=== PATIENT | male | born 1975 | race Caucasian/White ===

== ENCOUNTER 2024-08-12 07:39 | Inpatient (IN) | payer BC ==
[~2024-08-12] VITALS: Ht 182.9 cm; Wt 97.7 kg
[2024-08-12] VITALS (16 sets, daily range): BP systolic 118–146; BP diastolic 67–99; PULSE 60–88; RESP 11–19; TEMP 97.3–98; O2SAT 93–97
--- NOTE | 2024-08-12 08:03 | Physician Documentation ---
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 He woke around 4:30 a.m. with midsternal chest discomfort and chest tightness. Positive dys pnea. He then had radiation of his pain to his neck and down his left arm. He rates his symptoms as mild in severity but has never had these symptoms before. Medication Reconciliation Allergies: Coded Allergies: No Known Allergies (Unverified , 08/12/24) Scheduled Rosuvastatin Calcium (Rosuvastatin Calcium), 1 TAB PO DAILY, (Reported) Miscellaneous Medications Home Med List (No Home Medications), (Reported) Review of Systems All Other Systems at this time: Reviewed and Negative Constitutional: Denies: fever Physical Exam Vital Signs: Temperature: 97.9, Source: Oral, Heart Rate: 74, Respiratory Rate: 18, BP: 151/102, Pulse Oximetry: 98, Weight: 102.580 Oxygen Flow Rate: 0 Physical Exam Well-appearing no distress sitting comfortably in bed no diaphoresis skin pink warm dry No JVD Cardiac no murmur Pulmonary clear to auscultation bilaterally Abdomen is soft nontender no mass or pulsation Lower extremity no edema Progress Progress Note Reassess patient at 8:49 a.m. he still looks well-appearing and his initial troponin returned within normal limits EKG but EKG now with ST elevation 9:00 a.m. discussed with Cardiology he will evaluate the patient 9:20 a.m. discussed again with Cardiology he plans for cardiac catheterization we will be in very soon either to see the patient in the ED or in the cathodic protection technician 9: 25 a.m. 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 [place] hospitalist who accepts for admission. Results/Orders Reviewed/noted all lab results: Yes Results/Orders Orders - SHERRI PLEITEZ MD Chest,Single View (08/12/24 07:50) Nitroglycerin Sublingual Tab (Nitrostat (08/12/24 07:50) Monitor (08/12/24 07:50) Saline Lock (5/18/25 07:50) Oxygen (08/12/24 07:50) Electrocardiogram (08/13/24 07:50) Electrocardiogram (08/14/24 07:50) Electrocardiogram (08/15/24 07:50) Electrocardiogram (08/12/24 08:37) Electrocardiogram (08/13/24 08:37) Electrocardiogram (08/14/24 08:37) Electrocardiogram (08/15/24 08:37) Heparin 1,000unit/Ml 10ml Vial (Heparin (08/12/24 09:22) Page Hospitalist (08/12/24 09:34) Fill Out Med Reconciliation (08/12/24 09:34) Completed Orders - SHERRI PLEITEZ MD Chest,Single View (08/12/24 07:50) Aspirin 81mg Chew Tablet (Aspirin 81mg C (08/12/24 07:50) Cbc/Diff (08/12/24 07:50) Electrocardiogram (08/12/24 07:50) PBNP (08/12/24 07:50) CMP (08/12/24 07:50) Hs Troponin I W Calculations (08/12/24 07:50) Hs Troponin I W Calculations (08/12/24 09:50) Hs Troponin I W Calculations (08/12/24 10:50) Verapamil Inj (Verapamil Inj) (08/12/24 09:22) Lidocaine 1% 30ml Vial (Xylocaine 1% Via (08/12/24 09:22) Iohexol 350mg/Ml 50ml Inj (Omnipaque 350 (08/12/24 09:22) Iohexol 350mg/Ml 100ml (Omnipaque 350mg/ (08/12/24 09:22) Heparin 1,000 Units/Ns 500ml (Heparin 1, (08/12/24 09:23) Nitroglycerin 500mcg/5ml D5w (Nitroglyce (08/12/24 09:23) Midazolam 1 Mg/Ml 2ml Inj. (Versed 1 Mg/ (08/12/24 09:43) Fentanyl/Pf (Fentanyl 0.05 Mg/Ml Syringe (08/12/24 09:43) Heparin 25,000 Unit/250ml Bag (Heparin 2 (08/12/24 09:44) Iohexol 350mg/Ml 100ml (Omnipaque 350mg/ (08/12/24 09:59) Iohexol 350mg/Ml 50ml Inj (Omnipaque 350 (08/12/24 10:07) Vital Signs 08/12/24 08/12/24 08/12/24 07:51 08:49 09:08 Temp 97.9 97.9 Pulse 74 88 Resp 18 16 16 B/P (MAP) 151/102 131/92 (105) Pulse Ox 98 95 O2 Flow Rate 0 0 Laboratory Tests Test 08/12/24 08:02 08/12/24 09:04 White Blood Count 8.2 Red Blood Count 5.39 Hemoglobin 16.8 Hematocrit 47.9 Mean Corpuscular Volume 88.9 Mean Corpuscular Hemoglobin 31.1 H Mean Corpuscular Hemoglobin Concent 35.0 Red Cell Distribution Width 13.8 Platelet Count 187 Mean Platelet Volume 8.6 Neutrophils (%) (Auto) 64.8 Lymphocytes (%) (Auto) 21.7 Monocytes (%) (Auto) 10.8 Eosinophils (%) (Auto) 2.2 Basophils (%) (Auto) 0.5 Neutrophils # (Auto) 5.3 Lymphocytes # (Auto) 1.8 Monocytes # (Auto) 0.9 Eosinophils # (Auto) 0.2 Basophils # (Auto) 0.0 CBC Comment Sodium Level 139 Potassium Level 4.4 Chloride Level 104 Carbon Dioxide Level 29.8 Anion Gap 5 L Blood Urea Nitrogen 20 H Creatinine 1.12 H Estimated GFR/1.73 m2 70 BUN/Creatinine Ratio 17.9 Glucose Level 112 H Calcium Level 8.6 Total Bilirubin 0.8 Aspartate Amino Transf (AST/SGOT) 25 Alanine Aminotransferase (ALT/SGPT) 36 Alkaline Phosphatase 47 Troponin I High Sensitivity 13 Pro-B-Type Natriuretic Peptide 63 Total Protein 7.0 Albumin 4.0 Globulin 3.0 Albumin/Globulin Ratio 1.3 Chemistry Comments Erythrocyte Sedimentation Rate 1 EKG/XRAY/CT/US/VASC/MRI EKG : Additional Comment EKG independently interpreted by myself time 7:45 a.m. indication chest pain normal sinus rhythm rate 76 left axis deviation, LVH, poor R-wave progression submillimeter elevation lead 1 2 aVL and V6. No prior for comparison Repeat EKG time 844 indication chest pain increased elevation in I II aVL V5 V6 STEMI Heart Score: Heart Score Response (Comments) Value History Highly Suspicious [address]-Deviation 2 Age 45-64 1 Risk Factors 1 or 2 risk factors 1 Total 6 Medical Decision Making Additional info obtained from: family Findings 0820 Initial EKG concerning with sub mm ST-elevation in multiple leads. We will plan for repeat EKG and very close evaluation to evaluate for progression to STEMI criteria Additional Information Acute coronary syndrome, Departure Disposition: ADMITTED INPATIENT Impression: Primary Impression: STEMI (ST elevation myocardial infarction) Qualified Codes: I21.3 - ST elevation (STEMI) myocardial infarction of unspecified site Referrals: NO PRIMARY CARE PROVIDER (PCP) Critical Care Note Total Time (mins): 30 Critical Care Note The very real possibility of a deterioration of this patient's condition required the highest level of my preparedness for sudden, emergent intervention. I provided critical care services, which included medication orders, frequent reevaluations of the patient's condition and response to treatment, ordering and reviewing test results, and discussing the case with various consultants. Excludes time spent performing separately billable procedures. The critical care time associated with the care of the patient was 30 minutes in the management of acute STEMI Signature Scribe Signature: na Attestation: SHERRI Dennis MD August 12, 2024 08:03
--- NOTE | 2024-08-12 08:28 | RADIOLOGY REPORT ---
DI CHEST,SINGLE VIEW, HISTORY: CP COMPARISON: None None TECHNICAL DATA: 1 view of the chest was obtained. FINDINGS: Lines and tubes: None Cardiomediastinal silhouette: normal Pulmonary vasculature: normal Lung expansion: normal Lung airspace: normal Lung interstitium: normal Pleura: normal Pneumothorax: no Bones: Unremarkable Other: no IMPRESSION: No acute intrathoracic abnormality.
[2024-08-12] MEDS: aspirin 81mg tab.chew PO ONE (08:30)
[2024-08-12 08:33] LABS: ALANINE AMINOTRANSFERASE 36 U/L (12-78); ALBUMIN/GLOBULIN RATIO 1.3 (1.1-1.5); ALKALINE PHOSPHATASE 47 IU/L (46-116); ANION GAP 5 (8-16); ASPARTATE AMINO TRANSFERASE 25 U/L (10-37); BASOPHILS % (AUTO) 0.5 % (0-1); BILIRUBIN,TOTAL 0.8 MG/DL (0.1-1.0); BLOOD UREA NITROGEN 20 MG/DL (7-18); BUN/CREATININE RATIO 17.9 (10.0-20.0); CALCIUM 8.6 MG/DL (8.5-10.1); CHLORIDE 104 MMOL/L (99-107); CREATININE 1.12 MG/DL (0.60-1.10); EOSINOPHILS # (AUTO) 0.2 X10'3 (0-0.9); EOSINOPHILS % (AUTO) 2.2 % (0-6); GLUCOSE 112 MG/DL (70-104); HEMATOCRIT 47.9 % (42.0-52.0); HEMOGLOBIN 16.8 g/dl (14.0-17.9); LYMPHOCYTES # (AUTO) 1.8 X10'3 (1.1-4.8); LYMPHOCYTES % (AUTO) 21.7 % (21-51); MEAN CORPUSCULAR HEMOGLOBIN 31.1 PG (27.0-31.0); MEAN CORPUSCULAR VOLUME 88.9 FL (78-98); MEAN PLATELET VOLUME 8.6 FL (7.4-10.4); MONOCYTES # (AUTO) 0.9 X10'3 (0-0.9); MONOCYTES % (AUTO) 10.8 % (2-12); NEUTROPHILS # (AUTO) 5.3 X10'3 (1.8-7.7); NEUTROPHILS % (AUTO) 64.8 % (42-75); PLATELET COUNT 187 X10'3 (140-440); POTASSIUM 4.4 MMOL/L (3.5-5.1); RED BLOOD COUNT 5.39 X10'6 (4.70-6.10); RED CELL DISTRIBUTION WIDTH 13.8 % (11.5-14.5); SODIUM 139 MMOL/L (135-145); TOTAL CARBON DIOXIDE 29.8 MMOL/L (24-32); WHITE BLOOD COUNT 8.2 X10'3 (4.5-11.0); eCRCL 89 ML/MIN; eGFR 70 ML/MIN
[2024-08-12 08:40] LABS: PRO BRAIN NATRIURETIC PEPTIDE 63 PG/ML (0-125)
--- NOTE | 2024-08-12 08:46 | ELECTROCARDIOGRAPH REPORT ---
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 Abdifatah Good Measurements Intervals [place] Rate: 71 P: -17 AR: 171 QRS: -13 QRSD: 82 T: -3 QT: 390 QTc: 424 Interpretive Statements Age not entered, assumed to be 50 years old for purpose of ECG interpretation Sinus rhythm Left ventricular hypertrophy Probable inferior infarct, age indeterminate Lateral leads are also involved Electronically Signed On 08-15-2024 21:45:[address] Abdifatah Good Please click the below link to view image of tracing.
[2024-08-12] MEDS: nitroGLYCERIN 0.4mg SUBLingual tab SL PRN (08:56)
[2024-08-12] MEDS ORDERED: NO HOME MEDS (09:11)
[2024-08-12] MEDS ORDERED: verapamil 2.5 mg/ml inj IV ONE (09:22)
[2024-08-12] MEDS ORDERED: heparin 1,000unit/ml 10ml vial 10 ML ONE (09:22)
[2024-08-12] MEDS ORDERED: iohexol 350 MG/ML 50ML vial IV ONE ×2 (09:22→10:07)
[2024-08-12] MEDS ORDERED: LIDOcaine 1% 30ml preserv. free vial ONE (09:22)
[2024-08-12] MEDS ORDERED: iohexol 350MG/ML 100ml bottle IV ONE ×3 (09:22→14:57)
[2024-08-12] MEDS ORDERED: nitroGLYCERIN 500mcg/5mL D5W 5 ML IV ONE (09:23)
[2024-08-12] MEDS ORDERED: fentaNYL/PF 50MCG/1 ML 2ML syringe ONE (09:43)
[2024-08-12] MEDS ORDERED: midazolam 1 mg/ML 2ml injection ONE (09:43)
[2024-08-12] MEDS ORDERED: heparin 25,000 UNIT/250ml bag 250 ML IV ONE (09:44)
[2024-08-12] MEDS ORDERED: magnesium sulf-water 4G/100mL 100 ML IV PRN (11:45)
[2024-08-12] MEDS ORDERED: ondansetron/PF 4mg/2ml inj IV PRN (11:45)
[2024-08-12] MEDS ORDERED: acetaminophen 325mg tablet PO PRN ×2 (11:45)
[2024-08-12] MEDS ORDERED: HYDROcodone/acetaminophen 5mg/325mg tablet PO PRN (11:45)
[2024-08-12] MEDS: normal saline 1000ml 1,000 ML IV ONE (11:45)
[2024-08-12] MEDS ORDERED: morphine 2 MG/ML inj. syringe IV PRN ×2 (11:45)
[2024-08-12] MEDS ORDERED: magnesium sulf-water 2g/50mL 50 ML IV PRN (11:45)
[2024-08-12] MEDS ORDERED: magnesium hydroxide 30ml (MOM) UD suspension PO PRN (11:45)
[2024-08-12] MEDS ORDERED: mag hydrox/Alum hydrox/simeth 30ml oral suspension PO PRN (11:45)
[2024-08-12] MEDS ORDERED: magnesium Cl slow-release 64mg tablet PO PRN (11:45)
[2024-08-12] MEDS ORDERED: potassium Cl 20 mEq SR tablet PO PRN ×2 (11:45)
[2024-08-12] MEDS ORDERED: potassium Cl 40MEQ/1/2NS 520ml 520 ML IV PRN (11:45)
[2024-08-12 12:26] LABS: APTT 54 SECONDS (22-32); INR 1.1 INR; POTASSIUM 4.6 MMOL/L (3.5-5.1)
[2024-08-12 12:32] LABS: HEMOGLOBIN A1C 5.3 % (4.5-6.2)
--- NOTE | 2024-08-12 13:19 | HISTORY AND PHYSICAL-Residence ---
History & Physical Providers to CC Resident Creating Document: BRANDO SANCHEZ RES ~ History of Present Illness Primary Medical Doctor: Graciela Vaughan Family Medical Reason for Admit\Complaint: CHEST PAIN History of Present Illness 48-year-old male [place] [employer] history of prior oral nicotine use, hypertension, hyperlipidemia presented to the ER for chest pain. Endorses chest pain or on 4 a.m, today, in the form of chest discomfort and chest tightness, retrosternal seven to 8/10, radiating to neck, left biceps, throbbing and pulsatile in nature, worsened with taking deep breaths, not radiating to back, not relieved with nitrates associated with increased blood pressures of 145/90 at home, associated with shortness of breathe. He rates his symptoms as mild in severity but has never had these symptoms before. He denied orthopnea, PND, wheezing, fever, cough, abdominal pain, abdominal distention, heartburn indigestion nausea, dyspepsia, acid reflux. Discussed code status and patient wants to be in full code. Allergies: Coded Allergies: No Known Allergies (Unverified , 08/12/24) Home Medications Home Medications Active Reported No Home Medications (Home Med List) Each Past Medical History Past Medical History Hypertension Hyperlipidemia Nicotine use disorder Past Surgical History Surgical History Comment Left shoulder surgery four years ago Past Social History Social History Comment Uses alcohol few evening drinks per week. He denies smoking and drug use. Smoking: Chew Alcohol Use: Occasionally Lives with: Family Lives In: Home ROS All Other Systems: Reviewed and Negative ROS Reviewed in full and negative except positive pertinent as in the HPI Constitutional: Denies: fever Exam Vitals: Vital Signs Date Time Temp Pulse Resp B/P (MAP) Pulse Ox O2 Delivery O2 Flow Rate FiO2 08/12/24 12:36 97.3 60 14 125/67 (86) 95 08/12/24 09:08 0 General: General: Alert, awake, oriented time place person. Not in acute distress. HEENT.: Normal , No JVD, no carotid bruit, no pallor, no icterus, no lymphadenopathy, no cyanosis Cardiovascular: First and second heart sounds heard. No murmurs/ rubs /gallops. No pericardial rub Pulmonary: Bilateral normal vesicular breath sounds are heard. No crepitations and wheeze and no pleural rub. Gastrointestinal: soft , nontender, no mass or pulsation, no rebound tenderness, no guarding, no rigidity. Lower extremity: no edema, no clubbing, Skin: Warm and dry Diagnostic Data Last Recorded Lab Results: 08/12/24 0802 08/12/24 1154 Diagnostic Data: Laboratory Tests Test 08/12/24 11:54 Prothrombin Time 11.0 SECONDS (9.0-12.0) INR International Normalized Ratio 1.1 INR Activated Partial Thromboplast Time 54 SECONDS (22-32) H D-Dimer 0.20 MG/L FEU (0-0.50) D-Dimer Comment Coagulation Comments Advance Care Planning Advanced Care planning: Add on additional 30 min Additional Plan Chest pain Likely secondary to unstable angina versus PE versus acute pericarditis versus pneumonia Vitals are stable no, blood pressures are in 150 initially CBC and CMP is okay Troponins, proBNP, D-dimer is normal APTT is 54, elevated Initial EKG in ER showed normal but later EKG showing ST changes borderline in lead one aVL and lead [address] Franco ER physician contacted Dr. Russ. Patient went to cardiac catheterization and does not showed any obstructive coronary artery disease on Dr. Russ recommended for aspirin 81 mg and atorvastatin 40 mg once daily. Echocardiography showed right ventricle which is moderately dilated with reduced function and RVSP of 24 an ejection fraction of 60% so we we are evaluating the chest pain with CT angiography PE protocol to rule out PE considering his right ventricular reduced function in the echocardiogram. Chest x-ray ruled out pneumonia and pleural effusion Echocardiogram ruled out pericarditis. We will follow up with CTA PE protocol results Received 325 mg of aspirin stat dose. We will continue aspirin 81 mg p.o. daily, atorvastatin 40 [address]o. HS per Dr. Luis Daniel Rivas. Pain management is with morphine and [place] five& Tylenol. On nitro 0.4 mg sublingual Q 5 mm p.r.n. chest pain. MARIAH Likely secondary to renal tubular stasis Serum creatinine is 1.12, BUN 20, BUN to creatinine ratio 17.9 with a EGFR of 70 Currently on 100 mL/hour normal saline Hypertension Blood Pressure is in 150s We will start on Lisinopril 5 mg and we will continue to monitor blood pressure with a target of less than 130 Hyperlipidemia Ordered lipid panel on we will follow up with the results. Started on atorvastatin 40 mg p.o. daily Code status: Full code DVT prophylaxis: SubQ heparin Diet: Heart healthy diet PT: Ordered Prognosis: [facility] Date of Service: August 12, 2024 Billing Provider: KASSANDRA CARRINGTON MD Common Visit Codes: 18612-LLSOOOA INP/OBS CARE (HIGH) Secondary Visit Codes: 45917-XYNMAZQG CARE PLAN 30 MINUTES BRANDO SANCHEZ, RES August 12, 2024 13:19 KASSANDRA CARRINGTON MD August 12, 2024 18:13
[2024-08-12] MEDS ORDERED: ROSU5TAB51 PO (13:47)
[2024-08-12] MEDS: normal saline 1000ml 1,000 ML IV SCH (13:50)
--- NOTE | 2024-08-12 15:39 | RADIOLOGY REPORT ---
Indication: chest pain,PE Technique: CT axial images of the chest are obtained with intravenous contrast per CT angiogram prot ocol. Coronal and sagittal reformats were obtained. Radiation Dose Information: CTDI volume is 24.2 mGy. Dose-length product is 1025 mGy*cm Comparison: None FINDINGS: There is no filling defect within the main left and right pulmonary arteries. Segmental and subsegme ntal branches are suboptimally opacified/characterize. Trachea patent. No pneumothorax. No pulmonary airspace consolidation. 5 mm left lower lobe solid nodu le. Heart normal in size. No mediastinal or hilar lymphadenopathy. No supraclavicular, axillary lymphaden opathy. Vicarious excretion contrast from the gallbladder. No aggressive osseous process. IMPRESSION: 1. No evidence for large pulmonary embolism. 2. A 5 mm left lower lobe pulmonary nodule. Recommend follow-up per Fleischner society criteria. 3. Vicarious excretion contrast from the gallbladder. Correlate for underlying renal dysfunction.
--- NOTE | 2024-08-12 16:14 | CARDIOLOGY REPORT ---
APPROVED REPORT EXAM: Comprehensive 2D, Doppler, and color-flow Echocardiogram. Patient Location: 3015 A Blood Pressure: 131/92 mmHg Heart Rate: 58 bpm Rhythm: Sinus Bradycardia Indications Angina/Chest Pain STEMI S/P Cath (no abstruction) 08/12/2024 English Division Chair: MD Florinda Consult Previous echo: None 2D Dimensions RVDd 4.0 cm LA Diam3.3 cm RA Minor3.3 cmLVOT Diameter 2.21 (1.8-2.4cm) Ao Asc Diam.3.34 cmCO 3.0 L/min M-Mode Dimensions RVDd 3.42 (2.1-3.2cm) Left Atrium(MM) 3.03 (2.5-4.0cm) IVSd 1.01 (0.7-1.1cm) LVDd 4.19 (4.0-5.6cm) Aortic Root 3.03 (2.2-3.7cm) PWd 1.12 (0.7-1.1cm) Aortic Cusp Exc 1.83 (1.5-2.0cm) IVSs 1.30 cm MV EPSS 0.6 (<0.5cm) LVDs 2.82 (2.0-3.8cm) FS (%) 33 % PWs 1.26 cm ESV(Teich) 30.0 ml LVEF(%) 62 (>50%) Aortic Valve AoV Peak Magdi. 179.6 cm/s AoV VTI 37.0 cm AO Peak GR. 12.9 mmHg AO Mean GR. 7 mmHg LVOT VTI 24.27 cm LVOT Peak Magdi. 105.3 cm/s JUAN(VTI)/BSA 2.51 cm2/m2 JUAN (VTI) 2.51 cm2 Mitral Valve MV E Velocity 82.2 cm/s MV Peak Gr. 3 mmHg MV DECEL TIME 192 ms MV A Velocity 66.8 cm/s MV Mean Gr. 1 mmHg MV PHT 48 ms E/A Ratio 1.2 MVA (PHT) 4.58 cm2 MV VMax79.7 cm/sMV VMean47.5 cm/s MVA VTI3.82 cm2MV VTI24.3 cm Tricuspid Valve TR P. Velocity 187 cm/s RAP ESTIMATE 10 mmHg TR Peak Gr. 14 mmHg RVSP 24 mmHg LEFT VENTRICLE Normal LV size and wall thickness. Overall systolic function is normal. Overall LVEF is 60%. RIGHT VENTRICLE Right ventricle is moderately dilated with reduced function. Estimated PA systolic pressure is 24 mmH g. ATRIA The left atrium size is normal. The right atrium size is normal. AORTIC VALVE Probable trileaflet AV appears sclerotic without stenosis or insufficiency. MITRAL VALVE Mild MV annular thickening without stenosis. Trace regurgitation. TRICUSPID VALVE TV appears structurally normal with trace to mild regurgitation. PULMONIC VALVE Normal PV without stenosis, physiologic insufficiency. GREAT VESSELS The aortic root is normal in size. The ascending aorta is normal in size. IVC is not well visualized. PERICARDIUM Normal pericardium. No pericardial effusion seen. Other Information Study Quality: Adequate Conclusion Overall LVEF is 60%. Normal LV size and wall thickness. Overall systolic function is normal. Right ventricle is moderately dilated with reduced function. Estimated PA systolic pressure is 24 mmH g. The left atrium size is normal. The right atrium size is normal. Probable trileaflet AV appears sclerotic without stenosis or insufficiency. Mild MV annular thickening without stenosis. Trace regurgitation. TV appears structurally normal with trace to mild regurgitation. Normal PV without stenosis, physiologic insufficiency. Normal pericardium. No pericardial effusion seen.
[2024-08-12] MEDS: heparin, porcine 5000 units/ml vial SQ SCH (16:40)
[2024-08-12] MEDS: lisinopril 5mg tablet PO SCH (19:49)
[2024-08-12] MEDS: atorvastatin 20mg tablet PO SCH (20:00)
[2024-08-12] MEDS: docusate sod 100mg capsule PO SCH (20:00)
[2024-08-12] MEDS: K and/or MAG REPLACEMENT MC SCH (20:00)
--- NOTE | 2024-08-13 00:40 | CARDIOLOGY REPORT ---
DATE OF SERVICE: 08/12/2024 DICTATING PHYSICIAN: KODY Russ MD CARDIAC CATHETERIZATION REPORT PRIMARY PHYSICIAN: VT Sawyer Rice. 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 Also, the patient has a history of chronic nicotine use. Risks, benefits, and alternative options were discussed, informed consent obtained. PROCEDURE TECHNIQUE: The patient underwent left heart catheterization from right radial approach, 6-Omani right radial sheath. Post-procedure access site hemostasis secured with right radial band. The patient tolerated the procedure well with no complications. PROCEDURES DONE: * Ultrasound-guided right radial artery visualization and access. * Left heart catheterization. * LVG. * Coronary cineangiography. * Conscious sedation 30 minutes. FINDINGS: HEMODYNAMICS: Aortic systolic 110, diastolic 81, mean 87 mmHg, LVEDP of 14 mmHg. There is no gradient across the aortic valve. LEFT VENTRICULOGRAM: Overall, left ventricular systolic function is normal with LV ejection fraction of about 70%. CORONARY CINEANGIOGRAPHY: Left main coronary artery could not be engaged with JL4 or JL4.5 diagnostic catheter. Hence, XB LAD 4 guide gave adequate engagement of the left main coronary artery. Left main with mild luminal irregularities. LAD is a medium caliber vessel arising at the bifurcation of main coronary artery, coursing through the anterior interventricular groove, ends by wrapping around the apex. LAD proximally has about 30% narrowing. Diagonal is a 1.75-mm caliber vessel with 30% narrowing. Diagonal 2 is 1.5-mm caliber vessel with mild luminal irregularities. Circumflex artery is a medium caliber vessel arising at the bifurcation of left main coronary artery and coursing through the left AV groove and mild luminal irregularities. High OM/ramus is a 3-mm caliber with mild luminal irregularities. OM2 is 2.5-mm caliber with mild luminal irregularities. Right coronary artery is a medium caliber dominant vessel arising at the right aortic sinus and coursing through the right AV groove ends at the posterior crux by dividing into PDA and a posterolateral RCA and its branches have mild luminal irregularity. IMPRESSION: * A 48-year-old male with LV ejection of 70%. * LVEDP of 40 mmHg with no significant gradient across the aortic valve. * Left main normal, proximal LAD 30% narrowing, diagonal 30% narrowing, circ marginal with minimal disease. * RCA with minimal disease. RECOMMENDATIONS: Recommend continued aggressive coronary risk factor modification, namely low-fat, low-cholesterol diet, maintaining ideal body weight, keeping LDL less than 70 mg, regular exercise program and continued cessation of nicotine use. BV MD Petrona TID: [id number] RECEIPT: [id number] STEPHANIE/HEVER/RAMILA cc: [facility]
[2024-08-13 02:00] VITALS: BP 118/72; PULSE 68; RESP 8; TEMP 97.6; O2SAT 97
--- NOTE | 2024-08-13 05:04 | CONSULTATION ---
DATE OF CONSULTATION: 08/12/2024 DICTATING PHYSICIAN: KODY Russ MD CARDIOLOGY CONSULTATION REQUESTING PHYSICIAN: ER physician. 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 HISTORY OF PRESENT ILLNESS: The patient is a 48-year-old male with hyperlipidemia, chronic tobacco use, mildly overweight, who woke up this morning around 4:30 a.m. with sternal chest pain, chest tightness with mild shortness of breath. He did say that he had radiation of his pain to his neck and down his left arm. These symptoms were mild, like a 3-4 out of 10, but persisted, came to the Emergency Room. He was found to have ST elevation in leads I, II, aVL, and V6, which was minimal and the STEMI was called. The patient generally goes to the gym three times a week and NYHA dyspnea class 2. No history of sustained palpitations or syncopal episode. No history of congenital rheumatic heart disease. No prior history of myocardial infarction or congestive heart failure. PAST MEDICAL HISTORY: * Hyperlipidemia. He was given cholesterol medication, Crestor 10 mg p.o. at bedtime, which he has not used yet. * Chronic tobacco use. The patient has been using chewing tobacco on a high end all the time and lately, he has switched to nicotine pouches and now, as of 04/21, he states he has quit using it. * Alcohol, mild to moderate amount of intake. No history of substance abuse. SOCIAL HISTORY: The patient is , lives with his . 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 FAMILY HISTORY: Father is 70 years old with multiple sclerosis and Parkinson's disease. Mother is 70 years old, healthy. REVIEW OF SYMPTOMS: HEENT: No hearing impairment. RESPIRATORY: Non-exertional shortness of breath. MUSCULOSKELETAL: No arthralgias. CENTRAL NERVOUS SYSTEM: No stroke, TIA, or seizure. PSYCHIATRIC: No anxiety or depression. SKIN: None. ENDOCRINE: None. PHYSICAL EXAMINATION: GENERAL: The patient is a 48-year-old male with mild chest discomfort and active. VITAL SIGNS: Temperature 97.8, pulse 74, blood pressure 151/102. NECK: No JVD. Carotids equally well felt. CARDIAC: Regular in rate and rhythm. S1, S2 normal. No S3 or S4 or murmur. LUNGS: Clear to auscultate bilaterally. ABDOMEN: Soft. No hepatosplenomegaly. Bowel sounds present. EXTREMITIES: No edema, cyanosis, or clubbing. CENTRAL NERVOUS SYSTEM: No lateralizing signs. LABORATORY DATA: WBC 8.2, hemoglobin 16.8, hematocrit 47.9, platelet count 187. Sodium 139, potassium 4.4, chloride 104, carbon dioxide 28.8, BUN 20, creatinine 1.12, proBNP 60. IMPRESSION AND PLAN: * A 48-year-old male with chest pain, ST elevation myocardial infarction. I recommend aspirin, heparin, and recommend coronary angiography. Risks, benefits, and alternative options discussed with the patient. The patient agrees. We will arrange for the same. * Hyperlipidemia. Recommend continued statins. * Chronic tobacco use. The patient has quit using tobacco as of 04/21. Recommend continuous tobacco cessation. Recommend dietary class and exercise program. KODY Russ MD TID: [id number] RECEIPT: [id number] STEPHANIE/JOURDAN/SHAGUFTA cc: [facility]
--- NOTE | 2024-08-13 05:35 | ELECTROCARDIOGRAPH REPORT ---
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 KODY Russ Measurements Intervals [place] Rate: 63 P: -6 RI: 173 QRS: 11 QRSD: 85 T: 5 QT: 419 QTc: 429 Interpretive Statements Sinus rhythm ST elevation suggests acute pericarditis Electronically Signed On 08-13-2024 19:13:[address] KODY Russ Please click the below link to view image of tracing.
--- NOTE | 2024-08-13 05:38 | ELECTROCARDIOGRAPH REPORT ---
[facility] Test Date: 2024-08-12 Test Time: 07:45:05 Pat Name: RENE QUICK Department: EMERGENCY ROOM Patient ID: [id number] Room: [place] [address] A Gender: M Payroll Analyst: JENNIFER : 1975 Requested By: SHERRI PLEITEZ Order Number: [id number] Reading MD: Dr. Abdifatah Good Measurements Intervals [place] Rate: 76 P: -8 [place]: 172 QRS: -2 QRSD: 95 T: 16 QT: 381 QTc: 429 Interpretive Statements Sinus rhythm Anterior Q waves, possibly due to LVH Borderline ST elevation, lateral leads Electronically Signed On 08-15-2024 21:45:[address] Abdifatah Good Please click the below link to view image of tracing.
[2024-08-13 06:00] VITALS: BP 133/85; PULSE 71; RESP 16; TEMP 97.3; O2SAT 96
[2024-08-13 08:00] VITALS: RESP 16; O2SAT 96
[2024-08-13 08:13] LABS: BASOPHILS # (AUTO) 0.1 X10'3 (0-0.2); BASOPHILS % (AUTO) 1.1 % (0-1); EOSINOPHILS # (AUTO) 0.2 X10'3 (0-0.9); EOSINOPHILS % (AUTO) 3.4 % (0-6); HEMATOCRIT 44.5 % (42.0-52.0); HEMOGLOBIN 15.3 g/dl (14.0-17.9); LYMPHOCYTES # (AUTO) 1.8 X10'3 (1.1-4.8); MEAN CORPUSCULAR HEMOGLOBIN 30.5 PG (27.0-31.0); MEAN CORPUSCULAR HGB CONC 34.5 g/dL (33.0-36.5); MEAN CORPUSCULAR VOLUME 88.6 FL (78-98); MEAN PLATELET VOLUME 8.6 FL (7.4-10.4); MONOCYTES # (AUTO) 0.6 X10'3 (0-0.9); MONOCYTES % (AUTO) 12.3 % (2-12); NEUTROPHILS # (AUTO) 2.1 X10'3 (1.8-7.7); NEUTROPHILS % (AUTO) 44.2 % (42-75); PLATELET COUNT 170 X10'3 (140-440); RED BLOOD COUNT 5.03 X10'6 (4.70-6.10); RED CELL DISTRIBUTION WIDTH 13.6 % (11.5-14.5); WHITE BLOOD COUNT 4.7 X10'3 (4.5-11.0)
[2024-08-13 08:33] LABS: ALANINE AMINOTRANSFERASE 30 U/L (12-78); ALBUMIN 3.4 G/DL (3.4-5.0); ALBUMIN/GLOBULIN RATIO 1.1 (1.1-1.5); ALKALINE PHOSPHATASE 44 IU/L (46-116); ANION GAP 3 (8-16); ASPARTATE AMINO TRANSFERASE 21 U/L (10-37); BILIRUBIN,TOTAL 0.9 MG/DL (0.1-1.0); BLOOD UREA NITROGEN 12 MG/DL (7-18); BUN/CREATININE RATIO 11.5 (10.0-20.0); CALCIUM 8.1 MG/DL (8.5-10.1); CHLORIDE 107 MMOL/L (99-107); CHOL/HDL RATIO 4.2 (0.00-4.99); CHOLESTEROL 190 MG/DL (0-200); CREATININE 1.04 MG/DL (0.60-1.10); GLUCOSE 110 MG/DL (70-104); HDL CHOLESTEROL 45 MG/DL (35-60); POTASSIUM 4.3 MMOL/L (3.5-5.1); SODIUM 139 MMOL/L (135-145); TOTAL CARBON DIOXIDE 28.7 MMOL/L (24-32); TOTAL PROTEIN 6.4 G/DL (6.4-8.2); TRIGLYCERIDES 107 MG/DL (20-135); eCRCL 95 ML/MIN; eGFR 76 ML/MIN
--- NOTE | 2024-08-13 08:45 | ELECTROCARDIOGRAPH REPORT ---
[facility] Test Date: 2024-08-13 Test Time: 08:44:15 Pat Name: RENE QUICK Department: [facility] 3S Patient ID: [id number] Room: [place] [address] A Gender: M New Patient Escort: JENELLE : 1975 Requested By: SHERRI PLEITEZ Order Number: [id number] Reading MD: Dr. KODY Russ Measurements Intervals [place] Rate: 67 P: 19 TN: 178 QRS: 7 QRSD: 90 T: 11 QT: 395 QTc: 417 Interpretive Statements Sinus rhythm Left ventricular hypertrophy Anterior Q waves, possibly due to LVH ST elevation, consider inferior injury Electronically Signed On 08-13-2024 19:13:[address] KODY Russ Please click the below link to view image of tracing.
[2024-08-13 09:24] VITALS: BP_SYST 133; PULSE 16
[2024-08-13] MEDS: aspirin 81mg, enteric-coated 1 TAB TABLET.DR PO SCH (09:24)
[2024-08-13] MEDS ORDERED: NITR0.4T51 SL (09:42)
[2024-08-13] MEDS ORDERED: ASPI-1071 PO (09:42)
[2024-08-13] MEDS ORDERED: LISI5TAB22 PO (09:42)
[2024-08-13] MEDS ORDERED: ATOR20TA66 PO (09:42)
[2024-08-13 09:58] LABS: LDL CHOLESTEROL 123 MG/DL (50-100)
[2024-08-13] MEDS ORDERED: PANT40TA54 PO (12:39)
--- NOTE | 2024-08-13 14:36 | DISCHARGE SUMMARY-Residence ---
Discharge Summary Providers to CC Resident Creating Document: KIRA SANCHEZ, RES ~ Discharge Summary Admission Diagnosis: STEMI Hospital Course DATE OF ADMISSION: 08/12/24 DATE OF DISCHARGE: 08/13/2024 He recovered sooner than expected and we discharged him. Patient is very eager to go home today. Chest x-ray on 08/12/2024 Normal study Echo on 08/12/2024 Conclusion Overall LVEF is 60%. Normal LV size and wall thickness. Overall systolic function is normal. Right ventricle is moderately dilated with reduced function. Estimated PA systolic pressure is 24 mmHg. The left atrium size is normal. The right atrium size is normal. Probable trileaflet AV appears sclerotic without stenosis or insufficiency. Mild MV annular thickening without stenosis. Trace regurgitation. TV appears structurally normal with trace to mild regurgitation. Normal PV without stenosis, physiologic insufficiency. Normal pericardium. No pericardial effusion seen. Chest thoracic CTA on 08/12/2024 FINDINGS: There is no filling defect within the main left and right pulmonary arteries. Segmental and subsegmental branches are suboptimally opacified/characterize. Trachea patent. No pneumothorax. No pulmonary airspace consolidation. 5 mm left lower lobe solid nodule. Heart normal in size. No mediastinal or hilar lymphadenopathy. No supraclavicular, axillary lymphadenopathy. Vicarious excretion contrast from the gallbladder. No aggressive osseous process. IMPRESSION: 1. No evidence for large pulmonary embolism. 2. A 5 mm left lower lobe pulmonary nodule. Recommend follow-up per Fleischner society criteria. 3. Vicarious excretion contrast from the gallbladder. Correlate for underlying renal dysfunction. Discharge Diagnosis\Comment: Chest pain-angina Mild CAD proximal LAD 30% narrowing and diagonal 30% narrowing, circumflex marginal with minimal disease, RCA with minimal disease. MARIAH secondary to renal tubular stasis Hypertension Hyperlipidemia Operations\Procedures: CARDIAC CATHETERIZATION REPORT PRIMARY PHYSICIAN: OK Sawyer Rice. WAYBILL CLERK: KODY Russ MD INDICATION: A 48-year-old [place] [facility] [employer] support [employer] with history of hyperlipidemia, woke up early in the morning with substernal chest discomfort; since it persisted, he came to the Emergency Room, found to have an ST elevation in lead I, aVL, V4, V6 and STEMI was called. Also, the patient has a history of chronic nicotine use. Risks, benefits, and alternative options were discussed, informed consent obtained. PROCEDURE TECHNIQUE: The patient underwent left heart catheterization from right radial approach, 6-Korean right radial sheath. Post-procedure access site hemostasis secured with right radial band. The patient tolerated the procedure well with no complications. PROCEDURES DONE: * Ultrasound-guided right radial artery visualization and access. * Left heart catheterization. * LVG. * Coronary cineangiography. * Conscious sedation 30 minutes. FINDINGS: HEMODYNAMICS: Aortic systolic 110, diastolic 81, mean 87 mmHg, LVEDP of 14 mmHg. There is no gradient across the aortic valve. LEFT VENTRICULOGRAM: Overall, left ventricular systolic function is normal with LV ejection fraction of about 70%. CORONARY CINEANGIOGRAPHY: Left main coronary artery could not be engaged with JL4 or JL4.5 diagnostic catheter. Hence, XB LAD 4 guide gave adequate engagement of the left main coronary artery. Left main with mild luminal irregularities. LAD is a medium caliber vessel arising at the bifurcation of main coronary artery, coursing through the anterior interventricular groove, ends by wrapping around the apex. LAD proximally has about 30% narrowing. Diagonal is a 1.75-mm caliber vessel with 30% narrowing. Diagonal 2 is 1.5-mm caliber vessel with mild luminal irregularities. Circumflex artery is a medium caliber vessel arising at the bifurcation of left main coronary artery and coursing through the left AV groove and mild luminal irregularities. High OM/ramus is a 3-mm caliber with mild luminal irregularities. OM2 is 2.5-mm caliber with mild luminal irregularities. Right coronary artery is a medium caliber dominant vessel arising at the right aortic sinus and coursing through the right AV groove ends at the posterior crux by dividing into PDA and a posterolateral RCA and its branches have mild luminal irregularity. IMPRESSION: * A 48-year-old male with LV ejection of 70%. * LVEDP of 40 mmHg with no significant gradient across the aortic valve. * Left main normal, proximal LAD 30% narrowing, diagonal 30% narrowing, circ marginal with minimal disease. * RCA with minimal disease. Consultants: Dr. Russ Complications: None Condition on DC: Stable New Medications: Pantoprazole Sodium (Pantoprazole Sodium) 40 Mg Tablet. 40 MG PO BKF for 30 Days, #30 TAB.SR Aspirin (Ecotrin*) 81 Mg Tablet. 1 TAB PO DAILY for 30 Days, #30 TAB.SR Atorvastatin Calcium (Atorvastatin Calcium) 20 Mg Tablet 40 MG PO HS for 30 Days, #60 TAB Lisinopril (Lisinopril) 5 Mg Tablet 5 MG PO DAILY for 30 Days, #30 TAB Nitroglycerin SL* (Nitrostat SL*) 0.4 Mg Tablet 0.4 MG SL Q5M PRN for Chest pain Q5min PRNx3-call MD for 30 Days, #30 TAB Discontinued Medications: Rosuvastatin Calcium (Rosuvastatin Calcium) 5 Mg Tablet 1 TAB PO DAILY for high cholesterol for 30 Days, #30 TAB 0 Refills daily Discharge Summary: HPI at the time of admission: 48[facility] prior oral nicotine use, hypertension, hyperlipidemia presented to the ER for chest pain. Endorses chest pain or on 4 a.m, today, in the form of chest discomfort and chest tightness, retrosternal seven to 8/10, radiating to neck, left biceps, throbbing and pulsatile in nature, worsened with taking deep breaths, not radiating to back, not relieved with nitrates associated with increased blood pressures of 145/90 at home, associated with shortness of breathe. He rates his symptoms as mild in severity but has never had these symptoms before. He denied orthopnea, PND, wheezing, fever, cough, abdominal pain, abdominal distention, heartburn indigestion nausea, dyspepsia, acid reflux. Discussed code status and patient wants to be in full code Course in the hospital: 40-year-old male with past medical history of hypertension, hyperlipidemia, nicotine use admitted for chest pain. We evaluated the patient with coronary angiography and CT angiography PE protocol. CBC, CMP is normal and Troponins, proBNP, D-dimer are normal APTT is 54, elevated. Initial EKG in ER showed normal but later EKG in the ER showed ST changes in lead one, two, aVL and V4 V5. Dr. Franco ER physician contacted Dr. Russ, Frame Aligner. Patient got cardiac catheterization and does not showed an proximal LAD 30% narrowing, diagonal 30% narrowing, circumflex marginal with a minimal disease and RCA with minimal disease. Recommended for aspirin 81 mg and atorvastatin 40 mg. Echocardiography showed right ventricle which is moderately dilated with reduced function and RVSP of 24 an ejection fraction of 60% and CT angiography PE protocol ruled out PE. Chest x-ray ruled out pneumonia and pleural effusion. Echocardiogram ruled out a pericarditis. Received 325 mg of aspirin stat dose and. We started him on aspirin 81 mg and atorvastatin 40 mg daily. MARIAH is noted and patient received IV normal saline 100 mL/hour. Received lisinopril 5 mg for high blood pressures. Received subcutaneous heparin. He recovered sooner than expected and we discharged him. Patient is very eager to go home today. Examination at the time of discharge Vital Signs Date Time Temp Pulse Resp B/P (MAP) Pulse Ox O2 Delivery O2 Flow Rate FiO2 08/13/24 09:24 16 08/13/24 08:00 16 96 Room Air 08/13/24 06:00 97.3 133/85 (101) 08/12/24 11:51 General: Alert, awake, oriented to time , place, person. Not in acute dist ress. HEENT.: Normal , No JVD, no carotid bruit, no pallor, no icterus, no lymphadenopathy, no cyanosis Cardiovascular: First and second heart sounds heard. No murmurs/ rubs /gallops. No pericardial rub Pulmonary: Bilateral normal vesicular breath sounds are heard. No crepitations and wheeze and no pleural rub. Gastrointestinal: soft , nontender, no mass or pulsation, no rebound tenderness, no guarding, no rigidity. Lower extremity: no edema, no clubbing, Skin: Warm and dry Laboratory Tests Test 08/12/24 08:02 08/12/24 09:04 08/12/24 11:54 08/12/24 13:08 White Blood Count 8.2 X10'3 Red Blood Count 5.39 X10'6 Hemoglobin 16.8 g/dl Hematocrit 47.9 % Mean Corpuscular Volume 88.9 FL Mean Corpuscular Hemoglobin 31.1 PG Mean Corpuscular Hemoglobin Concent 35.0 g/dL Red Cell Distribution Width 13.8 % Platelet Count 187 X10'3 Mean Platelet Volume 8.6 FL Neutrophils (%) (Auto) 64.8 % Lymphocytes (%) (Auto) 21.7 % Monocytes (%) (Auto) 10.8 % Eosinophils (%) (Auto) 2.2 % Basophils (%) (Auto) 0.5 % Neutrophils # (Auto) 5.3 X10'3 Lymphocytes # (Auto) 1.8 X10'3 Monocytes # (Auto) 0.9 X10'3 Eosinophils # (Auto) 0.2 X10'3 Basophils # (Auto) 0.0 X10'3 CBC Comment Sodium Level 139 MMOL/L Potassium Level 4.4 MMOL/L 4.6 MMOL/L Chloride Level 104 MMOL/L Carbon Dioxide Level 29.8 MMOL/L Anion Gap 5 Blood Urea Nitrogen 20 MG/DL Creatinine 1.12 MG/DL Estimated GFR/1.73 m2 70 ML/MIN BUN/Creatinine Ratio 17.9 Glucose Level 112 MG/DL Calcium Level 8.6 MG/DL Total Bilirubin 0.8 MG/DL Aspartate Amino Transf (AST/SGOT) 25 U/L Alanine Aminotransferase (ALT/SGPT) 36 U/L Alkaline Phosphatase 47 IU/L Troponin I High Sensitivity 13 ng/L 9 ng/L 7 ng/L Pro-B-Type Natriuretic Peptide 63 PG/ML 72 PG/ML Total Protein 7.0 G/DL Albumin 4.0 G/DL Globulin 3.0 G/DL Albumin/Globulin Ratio 1.3 Chemistry Comments Erythrocyte Sedimentation Rate 1 MM/HR Prothrombin Time 11.0 SECONDS INR International Normalized Ratio 1.1 INR Activated Partial Thromboplast Time 54 SECONDS D-Dimer 0.20 MG/L FEU D-Dimer Comment Coagulation Comments Hemoglobin A1c 5.3 % Magnesium Level 2.0 MG/DL Troponin I High Sens Percent Delta 30 % 22 % Troponin I Hi Sens Absolute Change -4 ng/L -2 ng/L Lipase 22 U/L Test 08/13/24 07:28 White Blood Count 4.7 X10'3 Red Blood Count 5.03 X10'6 Hemoglobin 15.3 g/dl Hematocrit 44.5 % Mean Corpuscular Volume 88.6 FL Mean Corpuscular Hemoglobin 30.5 PG Mean Corpuscular Hemoglobin Concent 34.5 g/dL Red Cell Distribution Width 13.6 % Platelet Count 170 X10'3 Mean Platelet Volume 8.6 FL Neutrophils (%) (Auto) 44.2 % Lymphocytes (%) (Auto) 39.0 % Monocytes (%) (Auto) 12.3 % Eosinophils (%) (Auto) 3.4 % Basophils (%) (Auto) 1.1 % Neutrophils # (Auto) 2.1 X10'3 Lymphocytes # (Auto) 1.8 X10'3 Monocytes # (Auto) 0.6 X10'3 Eosinophils # (Auto) 0.2 X10'3 Basophils # (Auto) 0.1 X10'3 CBC Comment Sodium Level 139 MMOL/L Potassium Level 4.3 MMOL/L Chloride Level 107 MMOL/L Carbon Dioxide Level 28.7 MMOL/L Anion Gap 3 Blood Urea Nitrogen 12 MG/DL Creatinine 1.04 MG/DL Estimated GFR/1.73 m2 76 ML/MIN BUN/Creatinine Ratio 11.5 Glucose Level 110 MG/DL Calcium Level 8.1 MG/DL Magnesium Level 2.0 MG/DL Total Bilirubin 0.9 MG/DL Aspartate Amino Transf (AST/SGOT) 21 U/L Alanine Aminotransferase (ALT/SGPT) 30 U/L Alkaline Phosphatase 44 IU/L Total Protein 6.4 G/DL Albumin 3.4 G/DL Globulin 3.0 G/DL Albumin/Globulin Ratio 1.1 Triglycerides Level 107 MG/DL Cholesterol Level 190 MG/DL LDL Cholesterol 123 MG/DL HDL Cholesterol 45 MG/DL Cholesterol/HDL Ratio 4.2 Chemistry Comments Discharge advice Recommendations from Dr. Russ - Recommend continued aggressive coronary risk factor modification, namely low-fat, low-cholesterol diet, maintaining ideal body weight, keeping LDL less than 70 mg, regular exercise program and continued cessation of nicotine use, alcohol. New Medications: Pantoprazole Sodium 40 Mg Tablet. Aspirin (Ecotrin*) 81 Mg Tablet. Atorvastatin Calcium 20 Mg Tablet Lisinopril 5 Mg Tablet Nitroglycerin SL* (Nitrostat SL*) 0.4 Mg Tablet Discontinued Medications: Rosuvastatin Calcium 5 Mg Tablet daily *Problems/Diagnosis: (1) Hypertension (2) Hyperlipidemia (3) MARIAH (acute kidney injury) (4) Chest pain (5) Mild CAD Total Time Spent on D/C: > 30 Minutes Date of Service: August 13, 2024 Billing Provider: KASSANDRA CARRINGTON MD Common Visit Codes: 91127-CQF/OBS DISCH DAY >30min KIRA SANCHEZ RES August 13, 2024 13:11 KASSANDRA CARRINGTON MD August 13, 2024 17:35
== END 2024-08-13 11:05 | disposition home or self-care (01) | DRG 286 ==
LOC: ER 07:41 → PCU 3S 11:02
PROVIDERS: ADMIT Internal Medicine; ATTEND Internal Medicine
PROC: B32T1ZZ Computerized Tomography (CT Scan) of Left Pulmonary Artery using Low Osmolar Contrast (ICD-10-PCS; principal; 2024-08-12)
PROC: 4A023N7 Measurement of Cardiac Sampling and Pressure, Left Heart, Percutaneous Approach (ICD-10-PCS; 2024-08-12)
PROC: B3201ZZ Computerized Tomography (CT Scan) of Thoracic Aorta using Low Osmolar Contrast (ICD-10-PCS; 2024-08-12)
PROC: B32S1ZZ Computerized Tomography (CT Scan) of Right Pulmonary Artery using Low Osmolar Contrast (ICD-10-PCS; 2024-08-12)
PROC: B2111ZZ Fluoroscopy of Multiple Coronary Arteries using Low Osmolar Contrast (ICD-10-PCS; 2024-08-12)
PROC: B2151ZZ Fluoroscopy of Left Heart using Low Osmolar Contrast (ICD-10-PCS; 2024-08-12)
DX: I25.119 Atherosclerotic heart disease of native coronary artery with unspecified angina pectoris (principal); N17.0 Acute kidney failure with tubular necrosis; Z79.899 Other long term (current) drug therapy; E78.5 Hyperlipidemia, unspecified; Z82.0 Family history of epilepsy and other diseases of the nervous system
CPT/HCPCS: 93306; 93458; C9606; 36415; 71045; 71275; 76937; 80053; 80061; 83036; 83690; 83735; 83880; 84132; 84484; 85025; 85379; 85610; 85651; 85730; 87081; 93005; 99152; 99153; A6258; A6402; C1725; C1751; C1894; G0378; J1644; J2003; J2250; J3010; J3490; J7030; Q9967